=== PATIENT | male | born 1955 | race Caucasian/White ===

== ENCOUNTER 2017-09-21 08:00 | Emergency (ER) | payer OTHER ==
[~2017-09-21] VITALS: Ht 177.8 cm; Wt 100.0 kg
[2017-09-21] MEDS ORDERED: ACETAMINOPHEN 325MG TABLET PO STA (08:48)
[2017-09-21 09:42] LABS: BASOPHILS % 0.9 % (0.0-2.0); EOSINOPHILS % 1.1 % (0.0-5.0); HEMATOCRIT. 42.8 % (42.0-52.0); HEMOGLOBIN. 14.4 g/dL (14.0-18.0); LYMPHOCYTES % 16.9 % (20.0-50.0); MEAN CORPUSCULAR HEMOGLOBIN 29.7 pg (28.0-32.0); MEAN CORPUSCULAR VOLUME 88.4 fL (80.0-94.0); MEAN PLATELET VOLUME 9.1 fl (7.4-10.4); MONOCYTES % 8.4 % (2.0-8.0); NEUTROPHILS % 72.7 % (40.0-76.0); PLATELET 265 x1000/uL (130-400); RED BLOOD CELL COUNT 4.84 mill/uL (4.7-6.1); RED CELL DISTRIBUTION WIDTH 14.2 % (11.6-14.6)
[2017-09-21 09:44] LABS: CHLORIDE 106 mEq/L (98-107)
[2017-09-21 09:45] LABS: PROTHROMBIN TIME 10.2 sec (9.1-11.1)
[2017-09-21 10:22] VITALS: BP 137/71
== END 2017-09-21 10:27 | disposition home or self-care (01) ==
LOC: ER 08:00
DX: M54.5 Low back pain (principal); V29.88XA Motorcycle rider (driver) (passenger) injured in other specified transport accidents, initial encounter; Y93.89 Activity, other specified; Y92.89 Other specified places as the place of occurrence of the external cause; Y99.8 Other external cause status; E11.9 Type 2 diabetes mellitus without complications; I21.9 Acute myocardial infarction, unspecified; Z96.651 Presence of right artificial knee joint
CPT/HCPCS: 36415; 71045; 80053; 83690; 85025; 85610; 99285